=== PATIENT | female | born 1995 | race Caucasian/White ===

== ENCOUNTER 2024-08-13 19:39 | Emergency (ER) | payer SELFPAY ==
[2024-08-13 20:02] LABS: BASOPHILS ABSOLUTE AUTO 0.08 K/uL (0.00-0.20); BASOPHILS PERCENT AUTO 0.8 % (0.0-1.0); EOSINOPHILS ABSOLUTE AUTO 0.55 K/uL (0.00-0.45); EOSINOPHILS PERCENT AUTO 5.4 % (0.0-6.0); HEMATOCRIT 41.5 % (37.0-47.0); IMMATURE GRAN ABSOLUTE AUTO 0.03 K/uL (0.00-0.05); IMMATURE GRAN PERCENT AUTO 0.3 % (0.0-0.4); LYMPHOCYTES ABSOLUTE AUTO 2.77 K/uL (1.00-4.80); LYMPHOCYTES PERCENT AUTO 27.1 % (24.0-44.0); MEAN CORPUSCULAR HEMOGLOBIN 28.2 pg (28.0-32.0); MEAN CORPUSCULAR HGB CONC 33.7 g/dL (32.0-36.0); MEAN CORPUSCULAR VOLUME 83.5 fL (83.0-99.0); MEAN PLATELET VOLUME 9.6 fL (9.4-12.3); MONOCYTES ABSOLUTE AUTO 1.04 K/uL (0.00-0.80); MONOCYTES PERCENT AUTO 10.2 % (0.0-8.0); NEUTROPHILS ABSOLUTE AUTO 5.76 K/uL (1.80-7.70); NEUTROPHILS PERCENT AUTO 56.2 % (41.0-71.0); PLATELET COUNT,PLT 233 K/uL (150-400); RED BLOOD CELL COUNT 4.97 M/uL (4.10-5.30); WHITE BLOOD CELL COUNT,WBC 10.23 K/uL (3.9-11.3)
[2024-08-13 20:25] LABS: A/G RATIO 1.1 (0.9-1.6); ALANINE AMINOTRANSFERASE,ALT 21 IU/L (14-63); ALKALINE PHOSPHATASE 127 U/L (46-116); ASPARTATE AMNIOTRANSFERASE,AST 16 IU/L (15-37); BILIRUBIN TOTAL 0.5 mg/dL (0.2-1.0); BLOOD UREA NITROGEN,BUN 8 mg/dL (7.0-18.0); CALCIUM 9.3 mg/dL (8.5-10.1); CARBON DIOXIDE,CO2 30.6 mmol/L (21.0-32.0); CHLORIDE,CL 103 mmol/L (98-107); GLUCOSE RANDOM 110 mg/dL (74-106); POTASSIUM,K 3.5 mmol/L (3.5-5.1); PROTEIN TOTAL,TP 7.6 g/dL (6.4-8.2); SODIUM,NA 141 mmol/L (136-145)
[2024-08-13 20:26] LABS: ESTIMATED GFR 79 mL/min (>60)
[2024-08-14] MEDS: Lisinopril 5 MG Tab PO ONE (00:15)
== END 2024-08-14 00:18 | disposition home or self-care (01) ==
LOC: MW.ED 19:39
DX: R41.0 Disorientation, unspecified (principal); I10 Essential (primary) hypertension; Z75.8 Other problems related to medical facilities and other health care
CPT/HCPCS: 36415; 80053; 85025; 99283; A9270